=== PATIENT | female | born 1945 | race Two or more races ===

== ENCOUNTER → 2021-05-05 | Day surgery (SDC) | payer OTHER ==
[~2021-05-05] MED LIST: AMLODIPINE-OLM1 EACH PO; GLUMETZA500 MG PO; LOSARTAN-HCTZ1 EAC1 PO; PANTOPRAZOLE SO40 M2 PO; TIROSINT25 MCG PO; [UNRECOGNIZED DRUG - OTHER] PO
== END | disposition home or self-care (01) ==
LOC: ADM 05-04 07:45 → CIR.AMB 06:51
PROVIDERS: ATTEND Urology
DX: C67.2 Malignant neoplasm of lateral wall of bladder (principal); C67.5 Malignant neoplasm of bladder neck; Z20.822 Contact with and (suspected) exposure to COVID-19

== ENCOUNTER 2021-07-21 05:20 | Day surgery (SDC) | payer OTHER ==
[~2021-07-21 05:20] MED LIST changes: +CYMBALTA60 MG PO
== END 2021-07-21 15:20 | disposition home or self-care (01) ==
LOC: CIR.AMB 05:20
PROVIDERS: ATTEND Urology
DX: Z85.51 Personal history of malignant neoplasm of bladder (principal)